=== PATIENT | female | born 1985 | race Asian ===

== ENCOUNTER 2019-04-03 06:10 | Inpatient (IN) | payer OTHER ==
[~2019-04-03 06:10] MED LIST: CITRIC ACID/SODIUM CITRATE 30 ML UNIT-DOSE CUP PO ONE; ELECTROLYTE-148 SOLN 500 ML IV ONE
[2019-04-03 06:37] VITALS: BMI 29.9
[2019-04-03] MEDS ORDERED: ELECTROLYTE-148 SOLN 1,000 ML IV SCH ×2 (06:40→08:15)
[2019-04-03] MEDS ORDERED: OXYTOCIN 20 UNITS in 0.9% NS 20 UNIT/1,000 ML INFUS.BAG IV ONE (07:55)
[2019-04-03] MEDS ORDERED: morphine SULFATE/PF 0.5 MG/ML (2cc Syringe - QUVA) ONE (07:57)
[2019-04-03] MEDS ORDERED: SUCCINYLCHOLINE CHLORIDE 200 MG/10 ML SYRINGE ONE (07:57)
[2019-04-03] MEDS ORDERED: PROPOFOL 20 ML ONE (07:58)
[2019-04-03] MEDS ORDERED: ePHEDrine SULFATE 50 MG/1 ML AMPULE ONE (08:00)
[2019-04-03] MEDS ORDERED: ceFAZolin SODIUM 1 GM VIAL ONE (08:00)
[2019-04-03] MEDS ORDERED: PHENYLEPHRINE HCL 10 MG/1 ML SINGLE DOSE VIAL ONE (08:00)
[2019-04-03] MEDS ORDERED: SODIUM CHLORIDE 0.9% P/F 10 ML VIAL IJ ONE ×2 (08:01→08:47)
[2019-04-03] MEDS ORDERED: METHYLERGONOVINE MALEATE 0.2 MG/1 ML AMP IM PRN (08:06)
[2019-04-03] MEDS ORDERED: BENZOCAINE 20% 57 GM BOTTLE TP PRN (08:06)
[2019-04-03] MEDS ORDERED: IBUPROFEN 800 MG/8 ML IJ IVPB PRN (08:06)
[2019-04-03] MEDS ORDERED: BENZOCAINE 28 GM HEMORRHOIDAL OINTMENT TP PRN (08:06)
[2019-04-03] MEDS ORDERED: WITCH HAZEL 50% (TUCKS) 40 PAD/JAR PAD TP PRN (08:06)
--- NOTE | 2019-04-03 08:06 | HP ---
Past Medical History - Primary Care Physician PCP:: Vandana Comer - Admission Chief Complaint: Placenta Previa History of Present Illness: 89 yo EDC 2019 EGA 38.3 week admitted for placenta previa for elective CS History Source: Patient Limitations to Obtaining History: No Limitations - Past Medical History ...: 1 ...Para: 0 ...Term: 0 ...: 0 ...Spon : 0 ...Induced : 0 ...Multiple Gestation: 0 ...LMP: 07/08/18 ... Weeks Gestation by Dates: 38.3 ...EDC by Dates: 04/14/19 - Past Surgical History Past Surgical History: Yes: None Hx Myomectomy: No Hx Transabdominal Cerclage: No - Smoking History Smoking history: Never smoked - Alcohol/Substance Use Hx Alcohol Use: No - Social History Usual Living Arrangement: Yes: With Spouse History of Recent Travel: No Home Medications - Allergies Allergies/Adverse Reactions: Allergies Allergy/AdvReac Type Severity Reaction Status Date / Time No Known Allergies Allergy Verified 04/03/19 06:41 - Home Medications Home Medications: Ambulatory Orders Vitamins (Sjr) - 1 tab PO DAILY 04/03/19 Review of Systems - Review of Systems Constitutional: reports: No Symptoms Eyes: reports: No Symptoms HENT: reports: No Symptoms Neck: reports: No Symptoms Cardiovascular: reports: No Symptoms Respiratory: reports: No Symptoms Gastrointestinal: reports: No Symptoms Genitourinary: reports: No Symptoms Breasts: reports: No Symptoms Reported Musculoskeletal: reports: No Symptoms Integumentary: reports: No Symptoms Neurological: reports: No Symptoms Endocrine: reports: No Symptoms Hematology/Lymphatic: reports: No Symptoms Psychiatric: reports: No Symptoms Physical Exam - Maternity Vital Signs: Vital Signs Temperature 97.7 F 04/03/19 06:29 Pulse Rate 98 H 04/03/19 06:29 Respiratory Rate 20 04/03/19 06:29 Blood Pressure 112/75 04/03/19 06:29 O2 Sat by Pulse Oximetry (%) Constitutional: Yes: Well Nourished, No Distress Neck: Yes: WNL Cardiovascular: Yes: WNL Lungs: Clear to auscultation - Abdominal Exam/OB Fundal Height: 38 Number of Fetuses: Single Presentation: Vertex Contractions: No Monitor Mode: External Heart Rate (range): 140 Category: I Decelerations: None - Vaginal Exam/OB Amniotic Membrane Status: Intact Presentation: Vertex/Position - Physical Exam Musculoskeletal: Yes: WNL Extremities: Yes: WNL Psychiatric: Yes: WNL, Alert, Oriented Hemorrhage Risk Assessment - Risk Factors High Risk Factors: Yes: Placenta previa, low lying Risk Score: 2 Risk Level: High Risk Problem List - Problems (1) Placenta previa antepartum in third trimester Problems reviewed: Yes Code(s): O44.03 - COMPLETE PLACENTA PREVIA NOS OR WITHOUT HEMOR, THIRD TRI (2) 38 weeks gestation of Code(s): Z3A.38 - 38 WEEKS GESTATION OF Assessment/Plan 38.3 week placenta previa Plan Low Transverse section
[2019-04-03] MEDS ORDERED: OXYTOCIN 10 UNITS/ML VIAL ONE ×2 (08:29→08:53)
[2019-04-03] MEDS ORDERED: KETOROLAC TROMETHAMINE 30 MG/1 ML VIAL ONE (08:36)
[2019-04-03] MEDS ORDERED: MIDAZOLAM HCL 2 MG/2 ML SINGLE DOSE VIAL ONE (08:45)
--- NOTE | 2019-04-03 09:12 | OP ---
Operative Note - Note: Operative Date: 04/03/19 Pre-Operative Diagnosis: Placenta Previa. 38 week Operation: Primary Section. 38 weeks Findings: Live female Post-Operative Diagnosis: Same as Pre-op Surgeon: Vandana Comer Mri Technician: Tony Ramos Anesthesia: Spinal Specimens Removed: Placenta Estimated Blood Loss (mls): 600 Operative Report Dictated: Yes
[2019-04-03] MEDS: OXYTOCIN 20 UNITS in 0.9% NS 20 UNIT/1,000 ML INFUS.BAG IV SCH (09:30)
[2019-04-03] MEDS ORDERED: CEFAZOLIN 1 GM in DEXTROSE 5%-WATER - 50 ML IVPB SCH (10:00)
--- NOTE | 2019-04-03 11:27 | OP ---
DATE OF OPERATION: 04/03/2019 PREOPERATIVE DIAGNOSES: Placenta previa, partial, and 38 weeks. OPERATION: Primary low transverse section, intrauterine at 38 weeks. FINDINGS: Live female delivered in OT position. SURGEON: Nir Comer MD DETECTIVE [place]: ABBY Garcia ANESTHESIA: Spinal. PROCEDURE: Patient was taken to the operating room, placed in the supine position, prepped and draped in the usual sterile fashion. Timeout was performed in accordance with hospital regulation. Pfannenstiel skin incision was made with the scalpel. Cautery was then used to go through the layers of the abdominal wall to the level of the fascia. Fascia was cut in the midline and cautery was then used to open the fascia in smiling fashion. Kwame was then used to bluntly and sharply dissect the rectus muscle off the fascia. Muscle split in the midline. Peritoneal cavity was then entered and carried up and downward. Bladder retractor was then placed. Scalpel was then used to make a low transverse uterine incision. Incision was carried up with the use of bandage scissors. A live female was delivered in OT position. Nose and mouth suction performed. Shoulders were delivered without difficulty. Cord was clamped and cut and cord blood obtained. Cord pH obtained. Placenta was manually extracted from the uterus. Infant was handed to supervisor powdered sugar. Uterus exteriorized and cleaned with clean lap pads. Uterine incision then closed using 0 Biosyn suture, 1st layer continuous interlocking, 2nd layer imbricating the 1st layer. Tubes and ovaries were noted to be normal. Abdominal cavity cleaned with clean lap pads. The uterus interiorized. Peritoneum closed using 0 Biosyn suture. Muscles approximated in the midline using 0 Biosyn suture. Abdominal sweep had been one. Fascia was then closed using 0 Vicryl suture in 2 parts. Subcutaneous was then closed using interrupteds using 0 Biosyn suture. Skin was then closed using 3-0 Vicryl in subcuticular fashion. Wound was washed and dressed. Patient tolerated procedure well and was taken to recovery in stable condition. NIR COMER M.D. [id number]
[2019-04-03] MEDS: CEFAZOLIN 1 GM/D5W 1 GM/50 ML BAG IVPB SCH (18:06)
[2019-04-04] MEDS: CEFAZOLIN 1 GM/D5W 1 GM/50 ML BAG IVPB SCH ×2 (02:32→10:26)
[2019-04-04] MEDS ORDERED: oxyCODONE HCL 5 MG TABLET PO PRN ×2 (08:06)
[2019-04-04] MEDS ORDERED: BISACODYL 10 MG SUPP.RECT RC PRN (08:06)
[2019-04-04 08:57] LABS: BASO % 0.3 % (0-2.0); EOS % 2.2 % (0-4.5); HEMATOCRIT 31.2 % (32.4-45.2); HEMOGLOBIN 10.7 GM/dL (10.7-15.3); LYMPH % 7.7 % (8-40); MCH 31.9 pg (25.7-33.7); MCHC 34.4 g/dl (32.0-36.0); MEAN PLT VOLUME 8.5 fl (7.5-11.1); MONO % 9.8 % (3.8-10.2); PLATELET COUNT 265 K/MM3 (134-434); RBC 3.36 M/mm3 (3.60-5.2); RDW 13.7 % (11.6-15.6); WHITE BLOOD COUNT 14.8 K/mm3 (4.0-10.0)
[2019-04-04] MEDS: IBUPROFEN 600 MG TABLET (FP) PO PRN ×3 (09:05→21:15)
[2019-04-04] MEDS: SIMETHICONE 80 MG TAB.CHEW (FP) PO PRN ×3 (09:05→21:15)
[2019-04-04] MEDS: ACETAMINOPHEN 325 MG TABLET (FP) PO PRN ×3 (09:06→21:16)
[2019-04-04] MEDS ORDERED: DIPHTH,PERTUSS(ACELL),TET 0.5 ML DISP.SYRIN IM ONE (10:00)
[2019-04-04] MEDS: PRENATAL VITAMINS W/ FOLIC ACID TABLET (FP) PO SCH (10:26)
[2019-04-04] MEDS: OXYTOCIN 20 UNITS in 0.9% NS 20 UNIT/1,000 ML INFUS.BAG IV SCH (11:56)
--- NOTE | 2019-04-04 13:12 | PN ---
Progress Note (short form) - Note Progress Note: Anesthesia post op note POD#1.S/P under spinal.Pat seen and examined. VSS. pain well controlled. No apparent post anesthesia complications.
[2019-04-04] MEDS: FERROUS SO4 325 MG TABLET (FP) PO SCH (17:30)
--- NOTE | 2019-04-04 21:03 | PN ---
Post Progress Note - Subjective Subjective: 33 yo Para 1, status post primary , seen and evaluated. She's doing well. No complaints. Post Day: 1 Type of Delivery: Primary C/S Vital Signs: Vital Signs Temperature 98.0 F 04/04/19 10:00 Pulse Rate 94 H 04/04/19 10:00 Respiratory Rate 20 04/04/19 10:00 Blood Pressure 94/50 L 04/04/19 10:00 O2 Sat by Pulse Oximetry (%) 100 04/03/19 11:00 Breast Exam: Yes: Soft Uterus: Yes: Fundus Firm Incision: Yes: Dressing dry and intact Abdomen/GI: Yes: Abdomen soft, Tolerating PO Lochia: Yes: Rubra Lochia, amount: Small Extremities: Yes: Calves non-tender Activity: Ambulating - Labs Labs: CBC WBC 14.8 K/mm3 (4.0-10.0) H 04/04/19 08:30 RBC 3.36 M/mm3 (3.60-5.2) L 04/04/19 08:30 Hgb 10.7 GM/dL (10.7-15.3) 04/04/19 08:30 Hct 31.2 % (32.4-45.2) L D 04/04/19 08:30 MCV 93.0 fl (80-96) 04/04/19 08:30 MCH 31.9 pg (25.7-33.7) 04/04/19 08:30 MCHC 34.4 g/dl (32.0-36.0) 04/04/19 08:30 RDW 13.7 % (11.6-15.6) 04/04/19 08:30 Plt Count 265 K/MM3 (134-434) 04/04/19 08:30 MPV 8.5 fl (7.5-11.1) 04/04/19 08:30 Absolute Neuts (auto) 11.9 K/mm3 (1.5-8.0) H 04/04/19 08:30 Neutrophils % 80.0 % (42.8-82.8) 04/04/19 08:30 Lymphocytes % 7.7 % (8-40) L D 04/04/19 08:30 Monocytes % 9.8 % (3.8-10.2) 04/04/19 08:30 Eosinophils % 2.2 % (0-4.5) 04/04/19 08:30 Basophils % 0.3 % (0-2.0) 04/04/19 08:30 Nucleated RBC % 0 % (0-0) 04/04/19 08:30 Problem List - Problems (1) Status post primary low transverse section Problems reviewed: Yes Code(s): Z98.891 - HISTORY OF UTERINE SCAR FROM PREVIOUS SURGERY Assessment/Plan Status post Ambulation Analgesia as needed Continue routine post op care
--- NOTE | 2019-04-05 06:58 | PN ---
Post Progress Note - Subjective Subjective: Patient seen and evaluated, doing well. Post Day: 2 Type of Delivery: Primary C/S Vital Signs: Vital Signs Temperature 98.2 F 04/04/19 22:00 Pulse Rate 94 H 04/04/19 22:00 Respiratory Rate 18 04/04/19 22:00 Blood Pressure 108/71 04/04/19 22:00 O2 Sat by Pulse Oximetry (%) 100 04/03/19 11:00 Uterus: Yes: Fundus Firm Incision: Yes: Dressing dry and intact Abdomen/GI: Yes: Tolerating PO Lochia: Yes: Rubra Lochia, amount: Small Extremities: Yes: Calves non-tender Activity: Ambulating - Labs Labs: CBC WBC 14.8 K/mm3 (4.0-10.0) H 04/04/19 08:30 RBC 3.36 M/mm3 (3.60-5.2) L 04/04/19 08:30 Hgb 10.7 GM/dL (10.7-15.3) 04/04/19 08:30 Hct 31.2 % (32.4-45.2) L D 04/04/19 08:30 MCV 93.0 fl (80-96) 04/04/19 08:30 MCH 31.9 pg (25.7-33.7) 04/04/19 08:30 MCHC 34.4 g/dl (32.0-36.0) 04/04/19 08:30 RDW 13.7 % (11.6-15.6) 04/04/19 08:30 Plt Count 265 K/MM3 (134-434) 04/04/19 08:30 MPV 8.5 fl (7.5-11.1) 04/04/19 08:30 Absolute Neuts (auto) 11.9 K/mm3 (1.5-8.0) H 04/04/19 08:30 Neutrophils % 80.0 % (42.8-82.8) 04/04/19 08:30 Lymphocytes % 7.7 % (8-40) L D 04/04/19 08:30 Monocytes % 9.8 % (3.8-10.2) 04/04/19 08:30 Eosinophils % 2.2 % (0-4.5) 04/04/19 08:30 Basophils % 0.3 % (0-2.0) 04/04/19 08:30 Nucleated RBC % 0 % (0-0) 04/04/19 08:30 Problem List - Problems (1) Status post primary low transverse section Code(s): Z98.891 - HISTORY OF UTERINE SCAR FROM PREVIOUS SURGERY Assessment/Plan Status post Ambulation Analgesia as needed Continue routine post op care
[2019-04-05] MEDS: IBUPROFEN 600 MG TABLET (FP) PO PRN ×3 (07:55→18:32)
[2019-04-05] MEDS: SIMETHICONE 80 MG TAB.CHEW (FP) PO PRN ×3 (07:55→18:31)
[2019-04-05] MEDS: ACETAMINOPHEN 325 MG TABLET (FP) PO PRN ×3 (07:56→18:31)
[2019-04-05] MEDS: FERROUS SO4 325 MG TABLET (FP) PO SCH ×2 (08:00→18:27)
[2019-04-05] MEDS: PRENATAL VITAMINS W/ FOLIC ACID TABLET (FP) PO SCH (10:33)
[2019-04-06] MEDS: ACETAMINOPHEN 325 MG TABLET (FP) PO PRN ×4 (00:40→23:08)
[2019-04-06] MEDS: IBUPROFEN 600 MG TABLET (FP) PO PRN ×4 (00:40→23:09)
[2019-04-06] MEDS: FERROUS SO4 325 MG TABLET (FP) PO SCH ×2 (07:43→17:11)
[2019-04-06] MEDS: SIMETHICONE 80 MG TAB.CHEW (FP) PO PRN ×3 (07:43→23:08)
--- NOTE | 2019-04-06 07:56 | PN ---
Post Note - Post Date of Delivery: 04/03/19 Post Day: 3 Vital Signs: Vital Signs - 24 hr 04/05/19 04/05/19 09:25 20:44 Temperature 98.0 F 97.9 F Pulse Rate 92 H 82 Respiratory 20 20 Rate Blood Pressure 107/59 L 109/69 - Subjective Subjective: No Complaints - Objective Afebrile: Yes Breast: Not engorged Abdomen: Soft Uterus: Fundus firm Vagina: Scant lochia Extremities: Non-tender - Assessment/Plan (3) Status post primary low transverse section Assessment: Other (POD 3 SP CS for previa) Plan: Routine Care
[2019-04-06 08:33] LABS: BASO % 0.4 % (0-2.0); EOS % 4.2 % (0-4.5); HEMATOCRIT 28.9 % (32.4-45.2); HEMOGLOBIN 9.9 GM/dL (10.7-15.3); LYMPH % 9.7 % (8-40); MCH 32.1 pg (25.7-33.7); MCHC 34.3 g/dl (32.0-36.0); MEAN CELL VOLUME 93.6 fl (80-96); MEAN PLT VOLUME 8.6 fl (7.5-11.1); MONO % 11.4 % (3.8-10.2); NEUT % 74.3 % (42.8-82.8); PLATELET COUNT 292 K/MM3 (134-434); RBC 3.09 M/mm3 (3.60-5.2); RDW 13.9 % (11.6-15.6); WHITE BLOOD COUNT 10.6 K/mm3 (4.0-10.0)
[2019-04-06] MEDS: PRENATAL VITAMINS W/ FOLIC ACID TABLET (FP) PO SCH (09:47)
[2019-04-07] MEDS: IBUPROFEN 600 MG TABLET (FP) PO PRN (08:07)
[2019-04-07] MEDS: ACETAMINOPHEN 325 MG TABLET (FP) PO PRN (08:08)
[2019-04-07] MEDS: SIMETHICONE 80 MG TAB.CHEW (FP) PO PRN (08:08)
[2019-04-07] MEDS: FERROUS SO4 325 MG TABLET (FP) PO SCH (08:09)
[2019-04-07] MEDS: PRENATAL VITAMINS W/ FOLIC ACID TABLET (FP) PO SCH (09:59)
[2019-04-07 10:13] VITALS: BP 112/71; PULSE 68; TEMP 97.7
--- NOTE | 2019-04-08 19:33 | PATH ---
Surgical Pathology Report Patient Name: ALEKS ETIENNE [facility]. Rec. 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 Specimen(s) Received PLACENTA Clinical History placenta previa 38 weeks Final Diagnosis PLACENTA: THIRD TRIMESTER PLACENTA. TRIVASCULAR CORD. MEMBRANES WITH NO DIAGNOSTIC ABNORMALITIES. Electronically Signed Min Farr M.D. Gross Description The specimen is received fresh labeled placenta and is a 428 gram, 17 x16 x 1.4cm. placenta with attached membranes and umbilical cord. The attached membranes are glistening, translucent, and insert marginally. The umbilical cord measures 7 cm. in length and averages 1.5 cm. in diameter. The cord inserts marginally. No true knots or strictures are identified. Cut surface of the umbilical cord reveals 3 vessels. Sectioning reveals red-brown, spongy parenchyma. No lesions are identified. Watch Crystal Cutter sections are submitted in three cassettes as follows: 1- membrane rolls and umbilical cord; 2-3- full thickness sections of placenta KWS/04/07/2019 luannki/04/07/2019
== END 2019-04-07 12:25 | disposition home or self-care (01) | DRG 540 ==
LOC: JLDR 06:10 → J3W 10:33
PROVIDERS: ADMIT Obstetrics & Gynecology; ATTEND Obstetrics & Gynecology
PROC: 10D00Z1 Extraction of Products of Conception, Low, Open Approach (ICD-10-PCS; principal; 2019-04-03)
DX: O44.03 Complete placenta previa NOS or without hemorrhage, third trimester (principal); Z3A.38 38 weeks gestation of pregnancy; Z37.0 Single live birth
CPT/HCPCS: 36415; 36600; 82803; 85025; 86900; 88307-TC; 90715